=== PATIENT | female | born 1990 | race African-American/Black ===

== ENCOUNTER 2019-02-27 10:57 | Emergency (ER) | payer MEDICAID, OTHER ==
[~2019-02-27] VITALS: Ht 167.6 cm; Wt 108.0 kg
[2019-02-27] MEDS ORDERED: METHOCARBAMOL 750 MG TABLET ONE ×2 (11:24)
[2019-02-27] MEDS ORDERED: KETOROLAC 30 MG/1 ML ONE (11:24)
[2019-02-27] MEDS ORDERED: KETOROLAC 30 MG/1 ML IM ONE (11:30)
[2019-02-27] MEDS ORDERED: METHOCARBAMOL 750 MG TABLET PO ONE (11:30)
--- NOTE | 2019-02-27 11:34 | NUR ---
MEDICATED PER EMAR FOR GENERALIZED THORACIC/LUMBAR BACK PAIN AT 08/13 TO RADIIOLOGY AT 1134
--- NOTE | 2019-02-27 12:05 | NUR ---
With reassessment reports pain improved to 4/10 Road test and po challenged unremarkable To be transported home by friend
[2019-02-27 12:15] VITALS: BP 148/73
== END 2019-02-27 12:24 | disposition home or self-care (01) ==
LOC: ED 12:14
DX: S39.012A Strain of muscle, fascia and tendon of lower back, initial encounter (principal); V49.49XA Driver injured in collision with other motor vehicles in traffic accident, initial encounter; F17.200 Nicotine dependence, unspecified, uncomplicated; Y93.89 Activity, other specified; Y92.410 Unspecified street and highway as the place of occurrence of the external cause; Y99.8 Other external cause status
CPT/HCPCS: 72072; 72110; 96372; 99283; J1885